=== PATIENT | female | born 1940 | race Caucasian/White ===

== ENCOUNTER 2024-12-19 12:28 | Emergency (ER) | payer OTHER ==
[~2024-12-19] VITALS: Ht 165.1 cm; Wt 50.0 kg
[2024-12-19 12:37] VITALS: TEMP 37; O2SAT 98
[2024-12-19] MEDS ORDERED: ACET-2708 MT (13:22)
[2024-12-19] MEDS ORDERED: BO1 TP (16:20)
[2024-12-19 16:57] VITALS: BP 170/87; PULSE 83; RESP 12; O2SAT 100
== END 2024-12-19 16:59 | disposition home or self-care (01) ==
LOC: ER 13:39
DX: S01.01XA Laceration without foreign body of scalp, initial encounter (principal); G31.9 Degenerative disease of nervous system, unspecified; I67.82 Cerebral ischemia; W01.0XXA Fall on same level from slipping, tripping and stumbling without subsequent striking against object, initial encounter; Y93.89 Activity, other specified; Y92.89 Other specified places as the place of occurrence of the external cause; Y99.8 Other external cause status
CPT/HCPCS: 12002; 99284